=== PATIENT | female | born 1950 | race Caucasian/White ===

== ENCOUNTER 2024-01-05 09:47 | Emergency (ER) | payer OTHER, SELFPAY ==
--- NOTE | 2024-01-05 10:49 | ED.GENMED ---
History of Present Illness
General
Chief Complaint: Musculo-Skeletal Complaint
Source: patient and other (Friend)
Exam Limitations: none
Time Seen by Provider: 01/05/24 10:05
Travel History
Have you had any contact with someone who has COVID-19?: No
Do you have any symptoms of coronavirus? Fever > 100 degrees, chills, cough, shortness of breath, sore throat, loss of taste or smell, muscle aches, or headache?: No
History of Present Illness
History of Present Illness:
73-year-old female who presents with right knee pain. [place] She states it swelled and was painful but she did not get checked out. 2 days ago the knee gave out again. Patient does report
discomfort. It is worse when she she is on her feet for a while. Denies hip or other injury. No fevers.
Past History
Past History
ED Past Medical History: Other (Diverticulitis,)
ED Past Surgical History: Other (Sledding accident age 11, kidney damaged, removed.)
Social History
Tobacco: Former smoker
Alcohol: Daily (1 vodka and cranberry/night)
Drug: None
Personal:
Living: alone
Phy Exam
Physical Exam
Physical Exam:
CONSTITUTIONAL Vital signs reviewed, Patient alert and oriented to person, place and time. Well-appearing
HEAD atraumatic, normocephalic.
EYES eyelids normal to inspection, Extraocular muscles intact, Conjunctiva normal, Sclera normal.
NECK normal range of motion, Trachea midline, no jugular venous distention.
RESP no respiratory distress
BACK No obvious deformities
UPPER EXTREMITY Gross Range of motion normal, gross motor strength normal
LOWER EXTREMITY Gross range of motion normal, Gross motor strength normal, suspect small effusion. Anterior drawer normal. Posterior drawer normal. Mild tenderness to the area of the lateral ligaments. Medial aspect nontender. Leg is warm and
well-perfused.
NEURO Speech normal, No focal motor deficits include, Girma coma scale 15, Memory normal, Cranial Nerves intact to screening exam.
SKIN Skin warm, dry, and normal in color.
PSYCHIATRIC Patient oriented to person place and time, Normal affect.
Course
Orders/Labs/Results
Orders:
Orders
01/05/24 09:51
Knee, Right 4 or More Views [CR Knee- Right 4 Or More View*] Urgent
Comment:
Reason For Exam: pain
01/05/24 10:38
Knee Immobilizer Right-Treatme ONCE
Vital Signs
Initial and Last Documented VS:
Initial Vital Signs
Temp Pulse Resp Pulse Ox
97.5 F 71 20 99
01/05/24 09:48 01/05/24 09:48 01/05/24 09:48 01/05/24 09:48
Last Documented Vital Signs
Temp Pulse Resp BP Pulse Ox
97.5 F 67 16 134/70 98
01/05/24 09:48 01/05/24 11:00 01/05/24 11:00 01/05/24 11:00 01/05/24 11:00
MDM/Problems Addressed
MDM/Problems Addressed:
Knee injury
*Radiology
Radiology exam reviewed: preliminary read by ED provider (No fracture noted) and radiology read reviewed
*Pulse Oximetry
Patient hypoxic: no
*Critical Care Note
Total Time (30-74mins, 75-104mins- exclusive of procedures): Not Applicable
Data Reviewed
Source: patient and other (Friend)
Patient Management
Escalation/DeEscalation of care consider admission/obs:
Knee immobilizer placed. Question meniscal injury versus other ligamentous injury. Outpatient follow-up recommended. MRI if symptoms persist. May just need orthopedic follow-up and PT
ED Attending Note
-
Portions of this chart may have been created with voice recognition software.� Occasional wrong word or��sound alike� substitutions may have occurred due to the inherent limitations of voice recognition software.
Discharge Plan
Departure
Patient Disposition: Home (Routine Discharge)
Date of Disposition: 01/05/24
Time of Disposition: 10:49
Patient with high blood pressure during this ER visit?: No
Discharge Problem:
Injury of knee
Instructions: Knee Immobilizer (DC), Knee Sprain ED
Prescriptions:
No Action
metronidazole 500 mg tablet
500 mg PO TID Qty: 21 0RF
levofloxacin 500 mg tablet
500 mg PO DAILY Qty: 7 0RF
Referrals:
Marina Ham CRNP [Family Provider] -
Bradford Gillette MD [Active] -
Activity Restrictions/Additional Instructions:
Please rest, ice and elevate your injured knee. If symptoms persist, please see orthopedics or your doctor in the next 1 week as further workup including an MRI of your knee may be necessary. Return immediately for worsening pain, fevers or any
other concerns.
Interventions
Interventions:
*Risk Screen - Suicide Last Done: 01/05/24 10:18
*General Assessment Last Done: 01/05/24 10:18
*Neglect/Abuse Screening Last Done: 01/05/24 10:18
ED- Fall Risk Assessment Last Done: 01/05/24 10:18
*ED COVID-19 Vaccine History Last Done: 01/05/24 09:48
*Nursing Disposition Last Done: 01/05/24 11:00
ED-Musculoskeletal Assessment Last Done: 01/05/24 10:18
Discharge Date and Time
Discharge Date/Time: 01/05/24 11:05
Print Language: MOHAWK
[2024-01-05 10:56] VITALS: BP 134/70
[2024-01-05 11:00] VITALS: BP 134/70
--- NOTE | 2024-01-05 11:05 | EDRN ---
Patient stated that her knee felt better and is able to walk with the immobilizer on. Patient using her quad cane. Reviewed discharge instructions with patient. Verbalized understanding. Ambulated with steady gait to the [facility].
== END 2024-01-05 11:05 | disposition home or self-care (01) ==
LOC: EMR 09:47
PROVIDERS: EMERGENCY PHYSICIAN Emergency Medicine; FAMILY PHYSICIAN Nurse Practitioner Adult Health
DX: S89.91XA Unspecified injury of right lower leg, initial encounter (principal); W19.XXXA Unspecified fall, initial encounter; Z87.891 Personal history of nicotine dependence
CPT/HCPCS: 99283; 29505; 73564